=== PATIENT | male | born 1950 | race African-American/Black ===

== ENCOUNTER 2023-10-07 04:24 | Day surgery (SDC) | payer OTHER ==
[2023-10-06 11:53] VITALS: BMI 28.7
[~2023-10-07 04:24] MED LIST: HEPARIN NA (PORCINE) 5,000 UNITS/ML 1ML VIAL SQ ONE; LIDOCAINE HCL 1%, 10 MG/ML (20ML VIAL) INF ONE
[2023-10-07] MEDS ORDERED: PAPAVERINE HCL 30 MG/1 ML 10 ML VIAL NR ONE (07:24)
[2023-10-07] MEDS ORDERED: HEPARIN NA (PORCINE) 5,000 UNITS/ML 1ML VIAL ONE (07:24)
[2023-10-07] MEDS ORDERED: POVIDONE-IODINE OINTMENT 10% - 28.4 GM TUBE ONE (07:25)
[2023-10-07] MEDS ORDERED: MIDAZOLAM HCL 2 MG/2 ML SINGLE DOSE VIAL ONE ×2 (07:58→09:19)
[2023-10-07] MEDS ORDERED: PROPOFOL 20 ML ONE (07:58)
[2023-10-07] MEDS ORDERED: ceFAZolin SODIUM 1 GM VIAL ONE (08:39)
[2023-10-07] MEDS ORDERED: DEXAMETHASONE SOD PHOSPHATE 4 MG/1 ML VIAL ONE (08:42)
[2023-10-07] MEDS ORDERED: ONDANSETRON 4 MG/2 ML VIAL ONE (08:42)
[2023-10-07] MEDS ORDERED: LIDOCAINE HCL 1%, 10 MG/ML (20ML VIAL) INF ONE ×2 (08:51)
[2023-10-07] MEDS ORDERED: HEPARIN NA (PORCINE) 5,000 UNITS/ML 1ML VIAL SQ ONE (08:56)
[2023-10-07] MEDS ORDERED: IPRATROPIUM BR 0.02% 0.5 MG/2.5 ML VIAL.NEB. NEB ONE (09:05)
[2023-10-07] MEDS ORDERED: ALBUTEROL SO4 0.083% IH SOL 2.5 MG/3 ML VIAL.NEB. NEB ONE (09:05)
[2023-10-07] MEDS ORDERED: KETAMINE HCL 200 MG/20 ML VIAL ONE (09:05)
[2023-10-07] MEDS ORDERED: ONDANSETRON 4 MG/2 ML VIAL IVPUSH PRN (10:25)
[2023-10-07] MEDS ORDERED: oxyCODONE HCL 5 MG TABLET PO PRN (10:25)
[2023-10-07] MEDS ORDERED: SODIUM CHLORIDE 1,000 ML IV SCH (10:30)
[2023-10-07 12:21] VITALS: RESP 20; TEMP 97.5
[2023-10-07 13:18] VITALS: BP 131/70; PULSE 85
== END 2023-10-07 13:40 | disposition home or self-care (01) ==
LOC: JASU-SURG 04:24
PROVIDERS: ATTEND Surgery Vascular Surgery
PROC: 03170ZD Bypass Right Brachial Artery to Upper Arm Vein, Open Approach (ICD-10-PCS; principal; 2023-10-07 08:00)
DX: I13.0 Hypertensive heart and chronic kidney disease with heart failure and stage 1 through stage 4 chronic kidney disease, or unspecified chronic kidney disease (principal); E11.22 Type 2 diabetes mellitus with diabetic chronic kidney disease; N18.9 Chronic kidney disease, unspecified; I50.9 Heart failure, unspecified
CPT/HCPCS: 82962; 94760; J1644